=== PATIENT | female | born 1970 ===

== ENCOUNTER 2021-07-15 08:04 | Outpatient (CLI) | payer OTHER ==
[~2021-07-15 08:04] MED LIST: CIPRO500 MG; GLIPIZIDE10 MG; GLUMETZA1000 MG; NEURONTIN800 MG
== END 2021-07-15 12:07 | disposition home or self-care (01) ==
LOC: SONOGRAMA 08:04
PROVIDERS: ATTEND Pathology Anatomic Pathology & Clinical Pathology
DX: E04.1 Nontoxic single thyroid nodule (principal)

== ENCOUNTER 2021-08-26 08:19 | Outpatient (CLI) | payer OTHER | END 2021-08-26 08:28 | disposition home or self-care (01) | LOC: RX STUDY 08:19 | PROVIDERS: ATTEND Otolaryngology Otolaryngology/Facial Plastic Surgery | DX: J35.1 Hypertrophy of tonsils (principal); G47.30 Sleep apnea, unspecified; R13.10 Dysphagia, unspecified; R59.0 Localized enlarged lymph nodes; J38.1 Polyp of vocal cord and larynx ==